=== PATIENT | male | born 1965 | race Caucasian/White ===

== ENCOUNTER → 2016-08-09 | Outpatient (CLI) | payer OTHER ==
[2016-08-09 11:41] LABS: CH 33.2; CHCM 33.5; HCT 50.7 % (39.0-53.0); HDW 2.18; HGB 16.5 gm/dL (13.0-17.5); MCH 32.6 pg (25.0-35.0); MCHC 32.7 g/dL (31.0-37.0); MCV 99.7 fL (80.0-100.0); Mean Platelet Volume 7.1; RBC 5.08 m/uL (4.30-5.90); RDW 12.7 % (11.5-15.5)
[2016-08-09 12:08] LABS: ALT 26 U/L (21-72); AST 24 U/L (17-59); Alkaline Phosphatase 62 U/L (38-126); Anion Gap 9 mmol/L; Blood Urea Nitrogen 18 mg/dL (9-20); Calcium 9.7 mg/dL (8.4-10.2); Carbon Dioxide 29 mmol/L (22-30); Chloride 101 mmol/L (98-107); Cholesterol 202 mg/dL (<200); Glucose 95 mg/dL (74-99); HDL Cholesterol 78 mg/dL (40-60); Non-African American GFR(MDRD) >60 (>60 ml/min/1.73 sqM); Potassium 4.7 mmol/L (3.5-5.1); Sodium 139 mmol/L (137-145); Total Bilirubin 0.6 mg/dL (0.2-1.3); Total Protein 7.2 g/dL (6.3-8.2); Triglycerides 46 mg/dL (<150)
[2016-08-09 13:07] LABS: Prostate Specific Antigen 2.05 ng/mL (0.00-4.00)
== END | disposition home or self-care (01) ==
LOC: LABWHC1 11:10
PROVIDERS: ATTEND Internal Medicine
DX: Z00.00 Encounter for general adult medical examination without abnormal findings (principal); E78.2 Mixed hyperlipidemia; N40.0 Benign prostatic hyperplasia without lower urinary tract symptoms; K21.0 Gastro-esophageal reflux disease with esophagitis; J44.9 Chronic obstructive pulmonary disease, unspecified; M54.5 Low back pain
CPT/HCPCS: 36415; 80053; 80061; 82272; 84153; 84439; 84443; 85027

== ENCOUNTER → 2017-04-11 | Outpatient (CLI) | payer OTHER ==
[2017-04-11 09:40] LABS: Cholesterol 202 mg/dL (<200); HDL Cholesterol 74 mg/dL (40-60)
--- NOTE | 2017-04-11 16:09 | XR ---
EXAMINATION TYPE: XR chest 2V DATE OF EXAM: 04/11/2017 COMPARISON: 06/07/2013 HISTORY: Daily tobacco abuse TECHNIQUE: Frontal and lateral views of the chest are obtained. FINDINGS: There is no focal air space opacity, pleural effusion, or pneumothorax seen. Linear left basilar subsegmental peripheral atelectasis is noted. Right paratracheal space is slightly enlarged d ue to rotation and superior vena cava shadow. Mild pulmonary hyperinflation and flattening of the natalie phragms on the lateral image relate to underlying COPD. The cardiac silhouette size is within normal limits. The osseous structures are intact. IMPRESSION: 1. Minimal left basilar subsegmental dependent atelectasis. No focal consolidation, pleural effusion or pneumothorax. 2. Radiographic sequela of COPD.
== END | disposition home or self-care (01) ==
LOC: LABWHC1 09:06
PROVIDERS: ATTEND Internal Medicine
DX: J44.9 Chronic obstructive pulmonary disease, unspecified (principal); J98.11 Atelectasis; E78.2 Mixed hyperlipidemia
CPT/HCPCS: 36415; 71020; 80061

== ENCOUNTER → 2023-07-06 | Outpatient (CLI) | payer OTHER ==
--- NOTE | 2023-07-06 19:07 | CT ---
EXAMINATION TYPE: CT abdomen pelvis w con DATE OF EXAM: 07/06/2023 COMPARISON: None HISTORY: Dysuria x [address] DLP: 810.2 mGycm Automated exposure control for dose reduction was used. TECHNIQUE: Helical acquisition of images was performed from the lung bases through the pelvis. CONTRAST: Performed with Oral Contrast and with IV Contrast, patient injected with 100 mL of Isovue 300. FINDINGS: There is mild atelectasis in the lung bases. The gallbladder is normal and there is no distention, wall thickening, pericholecystic fluid or galls tones. There is no focal mass or organomegaly involving the liver, pancreas or spleen. There is a small left adrenal adenoma. 5.8 x 4.3 x 4.8 cm heterogeneous mass in the lower pole of the right kidney multiple low density cyst ic structures with enhancing septations. The findings are highly suspicious for malignancy. The left kidney is normal. There is no retroperitoneal adenopathy or hemorrhage in the caliber the ab dominal aorta is normal. The IVC is unremarkable. The urinary bladder is not distended but there is an ill-defined calcific density in the posterior bl adder which may be associated with this mass within the bladder. Alternatively this represents an enl arged median lobe of the prostate gland projecting into the urinary bladder. Bladder neoplasm is not excluded. There is no pelvic adenopathy or free fluid. There is a large right hydrocele within the scrotum No lytic osseous lesions are seen. IMPRESSION: 1. Complex right renal mass as described above. Highly suspicious for neoplasm. 2. Poorly distended urinary bladder which limits evaluation but there appears to be calcification pos sibly associated with a bladder mass as well. Alternatively this may be related to an enlarged prosta te gland as described above. 3. No pelvic or retroperitoneal adenopathy.
== END | disposition home or self-care (01) ==
LOC: RADCTMAIN 15:39
PROVIDERS: ATTEND Family Medicine
DX: N28.89 Other specified disorders of kidney and ureter (principal); N32.89 Other specified disorders of bladder; R30.0 Dysuria
CPT/HCPCS: 74177; Q9967

== ENCOUNTER → 2023-07-14 | Outpatient (CLI) | payer OTHER ==
--- NOTE | 2023-07-14 09:25 | CTL ---
EXAMINATION TYPE: CT Low Dose Lung DATE OF EXAM: 07/14/2023 8:19 AM CLINICAL INDICATION:Male, 57 years old with history of Z12.2 SCREEN LUNG CA F17.210 NICOTINE DEPENDE NCE; smoker , history of tobacco use. COMPARISON: None. TECHNIQUE: Multiple axial non-contrast scans were obtained from approximately the lung apices through the upper abdomen. Coronal and sagittal reformatted images were obtained. Low dose technique was uti lized. CT DLP: 105.3 mGycm, Automated exposure control for dose reduction was used. CT Contrast: Contrast used: None Oral contrast used: None FINDINGS: ======== Lack of intravenous contrast and low dose technique limits the evaluation of the vascular and soft ti ssue structures. LUNGS: No evidence of pulmonary fibrosis. No evidence of focal consolidation, pneumothorax or pleural effusion. Mild centrilobular emphysema. Nodules: RUL: None. RML: None. RLL: None. ABRAHAM: None. LLL: None. AIRWAY: Patent and unremarkable. HEART: Size within normal limits. MEDIASTINUM: No gross evidence of adenopathy. VASCULATURE: No aortic aneurysm. MUSCULOSKELETAL: No acute osseous abnormalities SOFT TISSUES/LYMPH NODES: Unremarkable. LOWER NECK: No significant findings. UPPER ABDOMEN: Extrarenal pelves partially visualized. IMPRESSION: 1. No pulmonary nodules. 2. Mild emphysema changes. CT LUNG RAD AND CT CHEST RECOMMENDATION: Lung-Rad 1 Negative: Continue annual screening with LDCT in 12 months. S Modifier (other clinically significant findings): None Recommend smoking cessation (if current smoker), or continuation of smoking cessation (if prior smoke r). Annual screening for lung cancer with low-dose computed tomography is recommended in adults ages 55 to 77 years who have a 30 pack-year smoking history and currently smoke or have quit within the pa st 15 years. Screening should be discontinued once a person has not smoked for 15 years or develops a health problem that substantially limits life expectancy or the ability or willingness to have curat carla lung surgery. Lung rads 2021 [email or web address]
== END | disposition home or self-care (01) ==
LOC: RADCTMAIN 07:53
PROVIDERS: ATTEND Family Medicine
DX: Z12.2 Encounter for screening for malignant neoplasm of respiratory organs (principal); F17.210 Nicotine dependence, cigarettes, uncomplicated; J43.2 Centrilobular emphysema
CPT/HCPCS: 71271

== ENCOUNTER → 2023-10-29 | Outpatient (CLI) | payer OTHER ==
[2023-10-29 16:02] LABS: Basophils # (A) 0.18 X 10*3/uL (0.00-0.10); Basophils % (A) 2.2 %; Eosinophils # (A) 0.36 X 10*3/uL (0.04-0.35); Eosinophils % (A) 4.5 %; HCT 50.9 % (39.6-50.0); Lymphocytes # (A) 1.77 X 10*3/uL (0.90-5.00); MCH 32.6 pg (27.0-32.0); MCHC 33.4 g/dL (32.0-37.0); MCV 97.7 FL (80.0-97.0); Mean Platelet Volume 9.6 FL (9.5-12.2); Monocytes # (A) 0.84 X 10*3/uL (0.20-1.00); Monocytes % (A) 10.4 %; NRBC Per 100 WBC 0 X 10*3/uL (0.00-0.01); Neutrophils # (A) 4.86 X 10*3/uL (1.80-7.70); Neutrophils % (A) 60.5 %; Platelet Count 319 X 10*3/uL (140-440); RBC 5.21 X 10*6/uL (4.40-5.60); RDW 13.1 % (11.5-14.5); WBC 8.04 X 10*3/uL (4.50-10.00)
[2023-10-29 16:06] LABS: Blood Urea Nitrogen 12.8 mg/dL (9.0-27.0); Calcium 9.5 mg/dL (8.7-10.3); Carbon Dioxide 26.4 mmol/L (21.6-31.8); Chloride 102 mmol/L (96-109); Glucose 108 mg/dL (70-110); Potassium 4.8 mmol/L (3.5-5.5); Sodium 139 mmol/L (135-145)
[2023-10-29 20:14] LABS: Appearance,Urine Clear (Clear); Bilirubin,Urine Negative (Negative); Blood,Urine Moderate (Negative); Color,Urine Yellow (Yellow); Ketones,Urine Negative (Negative); Nitrite,Urine Negative (Negative); Specific Gravity,Urine 1.009 (1.001-1.030); Urobilinogen,Urine 0.2 E.U./DL
[2023-10-29 20:40] LABS: Bacteria,Urine None Seen (None Seen); Calcium Oxalate Crystals,Urine Present (None Seen); Sperm,Urine Present
== END | disposition home or self-care (01) ==
LOC: LABWHC1 08:37
PROVIDERS: ATTEND Urology
DX: D49.4 Neoplasm of unspecified behavior of bladder (principal)
CPT/HCPCS: 36415; 80048; 81001; 85025; 87086

== ENCOUNTER → 2023-12-04 | Outpatient (CLI) | payer MEDICARE ==
--- NOTE | 2023-12-04 15:12 | PE ---
EXAMINATION TYPE: PET CT fusion skull to thigh DATE OF EXAM: 12/04/2023 CLINICAL INDICATION:Male, 58 years old with history of C67.8 bladder ca; TECHNIQUE: Following the intravenous administration of 13.24 mCi of F-18 FDG, whole body images are performed from the skull base to the midthigh. Images are reviewed on the computer in the coronal, axial, and sagittal planes. Reconstructed rotating images are created on independent workstation and reviewed on the computer. A non-contrast CT is performed in conjunction with the PET scan. Glucose level 114 mg/dL CT DLP: 403.07 mGycm, Automated exposure control for dose reduction was used. COMPARISON: CT abdomen and pelvis 07/06/2023, CT low-dose lung 07/14/2023, PET/CT None, MRI: None FINDINGS: Mediastinal SUV mean is 2.94. Hepatic parenchyma SUV mean is 3.34. SKULL BASE AND NECK: No suspicious radiotracer activity. CHEST, MEDIASTINUM, AND HILAR REGION: No suspicious radiotracer activity. ABDOMEN AND PELVIS: Inferior right renal 5.9 x 4.5 cm mass redemonstrated with a maximum SUV of 2.47. Thickening of the bilateral adrenal glands without radiotracer uptake. Likely adrenal hyperplasia. M oderate left hydroureteronephrosis without obstructing calculus. Previously seen calculus within the urinary bladder is no longer visualized. Prostate dystrophic calcification redemonstrated. FDG activi ty is identified throughout both ureters. No right hydronephrosis. Underdistended urinary bladder wit h circumferential wall thickening and surrounding fat stranding. No focal uptake identified within th e bladder wall. MUSCULOSKELETAL STRUCTURES: No suspicious radiotracer activity. OTHER CT: Minimal mucosal thickening inferior right maxillary sinus. Right-sided hydrocele. Bilateral lower lobe linear atelectasis. IMPRESSION: 1. Redemonstration of right renal 5.9 x 4.5 cm mass without FDG uptake above background. Still suspi cious for malignancy. Recommend urology consult. 2. Posttreatment changes of the urinary bladder without focal bladder wall FDG uptake. Continued mod erate left hydronephrosis. 3. No other suspicious radiotracer uptake identified.
== END | disposition home or self-care (01) ==
LOC: RADPETMAIN 06:18
PROVIDERS: ATTEND Internal Medicine
DX: C67.8 Malignant neoplasm of overlapping sites of bladder (principal); N28.89 Other specified disorders of kidney and ureter; N13.39 Other hydronephrosis
CPT/HCPCS: 78815; A9552

== ENCOUNTER 2023-12-07 11:00 | Day surgery (SDC) | payer MEDICARE, OTHER ==
[2023-12-02 09:41] VITALS: BMI 25.7
[~2023-12-07 11:00] MED LIST: LIDOCAINE 1% (10MG/ML) FOR IV START INTRADERMA PRN
[2023-12-07] MEDS: IV FLUID CONTINUATION 1,000 ML IV ONE (11:12)
[2023-12-07 11:23] VITALS: TEMP 98.7
[2023-12-07] MEDS: LACTATED RINGERS 1,000 ML IV SCH (11:24)
[2023-12-07] MEDS ORDERED: PROPOFOL 10 MG/ML 20 ML VIAL IV ONE (12:28)
--- NOTE | 2023-12-07 12:56 | P.OP ---
Date of Procedure: 12/07/23 Preoperative Diagnosis: Screening colonoscopy Postoperative Diagnosis: Rectal polyp Sigmoid colon polyp Procedure(s) Performed: Colonoscopy Anesthesia: MAC Surgeon: Collin Emmanuel Pathology: other Condition: stable Disposition: PACU Description of Procedure: The patient was placed on the operating table in the lateral position. He received IV sedation. Digital rectal exam was performed. This revealed no abnormalities. The flexible colonoscope was then placed patient anus and passed throughout the entire colon. The ileocecal valve was visualized. The cecum, ascending and transverse colon appeared normal. The descending colon appeared normal. The sigmoid colon had a small polyp. This removed with a cold s forcep. Scope was upper back to the rectum and another polyp was seen and removed with the snare. Scope withdrawn for the patient.
[2023-12-07 13:10] VITALS: BP 138/78; PULSE 98; RESP 16
--- NOTE | 2023-12-07 13:27 | P.GSHP ---
History of Present Illness H&P Date: 12/07/23 Chief Complaint: Screening colonoscopy This is a 58-year-old male presents today for screening colonoscopy. Patient is had some trouble with constipation. Past Medical History Past Medical History: Cancer, COPD, Osteoarthritis (OA) Additional Past Medical History / Comment(s): Current bladder cancer, had surgery awaiting further treatment. Hx "lost vein in left leg." Constipation. History of Any Multi-Drug Resistant Organisms: None Reported Additional Past Surgical History / Comment(s): Bladder tumor removed, left leg vein "opened up". Past Anesthesia/Blood Transfusion Reactions: No Reported Reaction Past Psychological History: No Psychological Hx Reported Smoking Status: Current every day smoker Past Alcohol Use History: None Reported Additional Past Alcohol Use History / Comment(s): 1 ppd smoker. Past Drug Use History: Marijuana Additional Drug Use History / Comment(s): Marijuana gummies daily. - Past Family History Father Family Medical History: No Reported History Medications and Allergies Home Medications Medication Instructions Recorded Confirmed Type Aspirin 81 mg PO DAILY 11/09/23 12/02/23 History HYDROcodone/APAP 5-325MG [[place] 1 tab PO Q4-6H PRN 11/09/23 12/02/23 History 5-325] cilostazoL 100 mg PO DAILY 11/09/23 12/02/23 History Oxybutynin Chloride [oxyBUTYnin 10 mg PO DAILY 12/02/23 12/02/23 History chloride ER] Phenazopyridine HCl 100 mg PO TID 12/02/23 12/02/23 History Allergies Allergy/AdvReac Type Severity Reaction Status Date / Time bee venom protein (honey bee) Allergy Anaphylaxis Verified 12/02/23 09:23 Surgical - Exam Vital Signs Temp Pulse Resp BP Pulse Ox 98.7 F 93 18 117/82 96 12/07/23 11:22 12/07/23 11:22 12/07/23 11:22 12/07/23 11:22 12/07/23 11:22 - General well developed, well nourished, no distress - Eyes PERRL - ENT normal pinna - Neck no masses, no bruits - Abdomen Abdomen: soft, non tender Assessment and Plan Assessment: Will perform screening colonoscopy.
== END 2023-12-07 13:36 | disposition home or self-care (01) ==
LOC: ORWHC2ENDO 11:00
PROVIDERS: ATTEND Surgery
DX: Z12.11 Encounter for screening for malignant neoplasm of colon (principal); K62.1 Rectal polyp; J44.9 Chronic obstructive pulmonary disease, unspecified; M19.90 Unspecified osteoarthritis, unspecified site; F17.210 Nicotine dependence, cigarettes, uncomplicated; F12.90 Cannabis use, unspecified, uncomplicated; Z91.030 Bee allergy status; Z85.51 Personal history of malignant neoplasm of bladder; Z79.899 Other long term (current) drug therapy
CPT/HCPCS: 45380; 45385; 88305

== ENCOUNTER → 2024-05-12 | Outpatient (CLI) | payer MEDICARE ==
[2024-05-12 16:39] LABS: African American GFR (CKD) 62 (>60 ml/min/1.73 sqM); Blood Urea Nitrogen 22 mg/dL (9-20); Non-African American GFR(CKD) 54 (>60 ml/min/1.73 sqM)
--- NOTE | 2024-05-16 14:26 | CT ---
EXAMINATION TYPE: CT ChestAbdPelvis w con DATE OF EXAM: 05/16/2024 2:12 PM COMPARISON: 07/14/2023 12/04/2023, 07/06/2023. CLINICAL INDICATION: Male, 58 years old with history of C67.9 MALIGNANT NEOPLASM OF BLADDER, UNSPECIF IED; PHH, Malignant neoplasm of bladder. Technique: CT ChestAbdPelvis w con; Multiple axial images were obtained. Two-dimensional coronal and sagittal reconstructions were obtained. Contrast used:80 ml mL of Isovue 300 with IV Contrast, (None if empty) Oral contrast used: without Oral Contrast CT DLP: 635.8 mGycm, Automated exposure control for dose reduction was used. Findings: CHEST: LUNGS/ PLEURA: No focal consolidation, pneumothorax or pleural effusion. Mild centrilobular emphysema changes. AIRWAY: Patent and unremarkable. HEART: Size within normal limits. MEDIASTINUM: No gross evidence of adenopathy. VASCULATURE: No aortic aneurysm. MUSCULOSKELETAL: No acute osseous abnormalities. SOFT TISSUES/LYMPH NODES: Unremarkable. LOWER NECK: No significant findings. ABDOMEN: ABDOMEN LIVER: Unremarkable GALLBLADDER AND BILE DUCTS: Unremarkable. PANCREAS: Unremarkable. SPLEEN: Unremarkable. ADRENAL GLANDS: Unremarkable. KIDNEYS AND URETERS: The right kidney is surgically absent. No soft tissue mass in the surgical bed. No evidence of hydronephrosis or renal calculus. The left ureter is dilated likely due to altered phy siology of the ileal loop conduit.. PELVIS BLADDER: Unremarkable REPRODUCTIVE: Unremarkable. ABDOMEN & PELVIS STOMACH AND BOWEL: No evidence of bowel obstruction. PERITONEUM/RETROPERITONEUM: No evidence of pneumoperitoneum or free fluid. VASCULATURE: Mild atherosclerotic calcifications are present throughout the abdominal aorta and its b ranches. No evidence of aortic aneurysm. MUSCULOSKELETAL: No acute osseous abnormalities LYMPH NODES: No gross evidence for lymphadenopathy. SOFT TISSUE/ABDOMINAL WALL: Of postsurgical changes anterior abdominal wall. Small fat-containing umb ilical hernia. IMPRESSION: 1. The urinary bladder is surgically absent with ileal loop conduit. No organizing fluid collection, lymphadenopathy or mass visualized. 2. Surgically absent right kidney without evidence for soft tissue mass in the surgical bed. 3. Postoperative changes of the bowel. No evidence for obstruction. 4. The left kidney is without suspicious mass. 5. Dilated left ureter likely secondary to ileal conduit. 6. Mild emphysema [facility], , 05/16/2024 2:23 PM
== END | disposition home or self-care (01) ==
LOC: RADCTMAIN 15:58
PROVIDERS: ATTEND Internal Medicine
DX: C67.9 Malignant neoplasm of bladder, unspecified (principal); M12.9 Arthropathy, unspecified; J43.9 Emphysema, unspecified; Z90.5 Acquired absence of kidney
CPT/HCPCS: 82565; 84520; 71260; 74177; 36415; Q9967

== ENCOUNTER → 2024-05-16 | Outpatient (CLI) | payer MEDICARE, OTHER ==
[2024-05-16 13:52] LABS: African American GFR (CKD) 70 (>60 ml/min/1.73 sqM); Blood Urea Nitrogen 21 mg/dL (9-20); Non-African American GFR(CKD) 60 (>60 ml/min/1.73 sqM)
== END | disposition home or self-care (01) ==
LOC: RADCTMAIN 12:54
PROVIDERS: ATTEND Internal Medicine
DX: C67.9 Malignant neoplasm of bladder, unspecified (principal); M12.9 Arthropathy, unspecified
CPT/HCPCS: 82565; 84520

== ENCOUNTER 2024-05-31 13:55 | Day surgery (SDC) | payer MEDICARE, OTHER ==
[~2024-05-31 13:55] MED LIST changes: +HYDROmorphone 0.5 MG/0.5 ML SYRINGE IVP PRN; +LACTATED RINGERS 1,000 ML IV SCH; +Pre Op ABX Message 1 EACH MISC MISCELLANE ONE; +droPERidol 5 MG/2 ML VIAL IVP ONE
[2024-05-31 14:18] VITALS: TEMP 98
[2024-05-31] MEDS: ONDANSETRON 4 MG/2 ML VIAL IVP ONE (14:24)
[2024-05-31] MEDS: DEXAMETHASONE SOD PHOSPHATE 4 MG/ML 1 ML VIAL IV ONE (14:24)
[2024-05-31] MEDS: IV FLUID CONTINUATION 1,000 ML IV ONE ×2 (15:13→15:50)
[2024-05-31] MEDS: HEPARIN SODIUM,PORCINE 5,000 UNIT/ML 1 ML VIAL SQ STA (15:14)
[2024-05-31] MEDS ORDERED: fentaNYL (PF) 50 MCG/ML 2 ML AMP ONE (15:18)
[2024-05-31] MEDS ORDERED: PROPOFOL 10 MG/ML 20 ML VIAL IV ONE (15:18)
[2024-05-31] MEDS ORDERED: MIDAZOLAM 2 MG/2 ML VIAL ONE (15:18)
[2024-05-31] MEDS: SODIUM CHLORIDE 0.9% 50 ML with ceFAZolin 2 GM IV ONE (15:23)
[2024-05-31] MEDS: HEPARIN SODIUM,PORCINE 100 UNIT/ML 5 ML VIAL IV ONE ×2 (15:46)
[2024-05-31] MEDS: LIDOCAINE (PF) 10 MG/ML 2 ML VIAL SQ ONE ×2 (15:48)
--- NOTE | 2024-05-31 16:33 | FL ---
EXAMINATION TYPE: FL guided central line placemt DATE OF EXAM: 05/31/2024 4:13 PM COMPARISON: Pre Operative Images if available both CT/MRI or plain film CLINICAL INDICATION: Male, 58 years old with history of PROSTATE CA PORTACATH INSERT; TECHNIQUE: FL guided central line placemt, multiple fluoroscopic images provided for procedure. Total fluoroscopy time: 4 seconds Total submitted images to PACS: 1 DAP: 0.05122 mGym2 Gycm2 uGym2 cGycm2 or equivalent. FINDINGS: Fluoroscopic imaging for Port-A-Cath insertion no evidence for pneumothorax. Multilevel degeneration changes of the spine. IMPRESSION: 1. No evidence for intraoperative complication. 2. Please see the operative/procedural note for further details. [facility], , 05/31/2024 4:31 PM
[2024-05-31 16:46] VITALS: RESP 18
[2024-05-31 16:51] VITALS: BP 119/87; PULSE 77
--- NOTE | 2024-05-31 16:51 | XR ---
EXAMINATION TYPE: XR chest 1V DATE OF EXAM: 05/31/2024 4:36 PM COMPARISON: Chest radiographs from 04/11/2017 CLINICAL INDICATION: Male, 58 years old with history of PTX; TECHNIQUE: XR chest 1V Frontal view of the chest. FINDINGS: Lungs/Pleura: There is no evidence of pleural effusion, focal consolidation, or pneumothorax. Pulmonary vascularity: Unremarkable. Heart/mediastinum: Cardiomediastinal silhouette is unremarkable. Musculoskeletal: No acute osseous pathology. Other findings: None Lines/Tubes: [id number] projecting over the right hemithorax with distal tip at the cavoatrial junction. IMPRESSION: No evidence for pneumothorax. No acute cardiopulmonary disease/process. [facility], , 05/31/2024 4:49 PM
--- NOTE | 2024-05-31 20:56 | P.OP ---
Date of Procedure: 05/31/24 Preoperative Diagnosis: Prostate Cancer Postoperative Diagnosis: Prostate Cancer Procedure(s) Performed: Mediport Insertion Anesthesia: MAC Surgeon: Bethel Freedman Pathology: none sent Condition: stable Disposition: PACU Description of Procedure: The patient was taken to the operating room, placed supine, put under general endotracheal anesthesia. The patient's neck, chest, and shoulders were prepped and draped in usual sterile fashion. The right subclavian vein was cannulated. The wire was passed, which was in good position under fluoroscopy, using Seldinger Technique. Near wire incision site made a pocket above the fascia and sutured in a size single-lumen MediPort into the pocket in 4 places using 3-0 Vicryl Suture. I then sized the catheter under fluoroscopy and placed introducer and dilator over the wire, removed the wire and dilator, placed the catheter through the introducer and removed the introducer. The line tip was in good position under fluoroscopy. It withdrew and flushed well. I then closed the incision using 3-0 Vicryl, 4-0 Monocryl for the skin, and dressed with Steri-Strips. Accessed the ports with a 1-inch 20-gauge Brennan needle, and it withdrew and flushed well with final heparin flush. We secured this with Tegaderm
== END 2024-05-31 17:13 | disposition home or self-care (01) ==
LOC: OR 13:55
PROVIDERS: ATTEND Surgery
DX: C61 Malignant neoplasm of prostate (principal); J44.9 Chronic obstructive pulmonary disease, unspecified; I73.9 Peripheral vascular disease, unspecified; F17.210 Nicotine dependence, cigarettes, uncomplicated; G47.33 Obstructive sleep apnea (adult) (pediatric); Z79.899 Other long term (current) drug therapy
CPT/HCPCS: 77001; 71045; 36561; J2003; J1644; J1642; J1100; J2405

== ENCOUNTER → 2024-09-21 | Outpatient (CLI) | payer MEDICARE ==
[2024-09-21 11:46] LABS: African American GFR (CKD) 76 (>60 ml/min/1.73 sqM); Blood Urea Nitrogen 24 mg/dL (9-20); Non-African American GFR(CKD) 65 (>60 ml/min/1.73 sqM)
--- NOTE | 2024-09-21 12:47 | CT ---
EXAMINATION TYPE: CT ChestAbdPelvis w con DATE OF EXAM: 09/21/2024 12:20 PM COMPARISON: 05/12/2024, 12/04/2023 CLINICAL INDICATION: Male, 59 years old with history of C64.9 MALIGNANT NEOPLASM OF UNSP KIDNEY, EXCE PT RE; PHH, H/O renal, bladder, and prostate cancer. Technique: CT of the chest, abdomen, and pelvis after IV contrast demonstration. Delayed images throu gh the kidneys and coronal/sagittal reconstructions performed. Contrast used:100ml mL of Isovue 300 with IV Contrast, (None if empty) Oral contrast used: without Oral Contrast CT DLP: 698.5 mGycm, Automated exposure control for dose reduction was used. Findings: CHEST: Right anterior chest wall injection port with catheter tip in the right atrium. Heart normal size without pericardial effusion. Mild LAD coronary artery calcifications are present. Borderline ectasia ascending aorta at 3.5 cm. Conventional arch vessel branching anatomy. Some symmetric, prominent but nonenlarged axillary lymph nodes are unchanged. No thoracic lymphadenop athy by CT size criteria. Strandy atelectasis and/or scarring at the lung bases slightly increased in the interval. Background mild emphysematous change. No consolidation or pleural effusion. ABDOMEN: No focal liver lesion or biliary ductal dilatation. Portal venous system is patent. Gallbladder, right adrenal gland, spleen, and pancreas within normal limits. Diffuse thickening of the left adrenal gland is unchanged. Tiny 8 mm cortical cyst upper pole left ki dney. No abnormal soft tissue identified within the right nephrectomy bed. Similar fullness of the le ft renal collecting system and left ureter with right lower quadrant divergent urostomy characterized by ileal conduit. No dilated small bowel, free fluid, or free air. No mesenteric or retroperitoneal lymphadenopathy. Scattered mild stool. No pericolonic inflammatory change. Pelvis: Bladder surgically absent. No pelvic lymphadenopathy seen. No abnormal fluid collection in the pelvis . Bones: No osseous destructive process. IMPRESSION: 1. Status post right nephrectomy and bladder resection. Right lower quadrant diverting urostomy with ileal conduit. 2. No suspicious lymphadenopathy or mass to suggest recurrent disease. 3. Similar fullness of the left ureter probably as a result of the ileal conduit. [facility], , 09/21/2024 12:44 PM
== END | disposition home or self-care (01) ==
LOC: RADCTMAIN 11:13
PROVIDERS: ATTEND Internal Medicine
DX: C64.9 Malignant neoplasm of unspecified kidney, except renal pelvis (principal); C67.9 Malignant neoplasm of bladder, unspecified; C61 Malignant neoplasm of prostate; M12.9 Arthropathy, unspecified; Z90.5 Acquired absence of kidney
CPT/HCPCS: 82565; 84520; 71260; 74177; 36415; Q9967